=== PATIENT | male | born 1985 | race Asian ===

== ENCOUNTER 2016-06-11 20:42 | Emergency (ER) | payer OTHER ==
[2016-06-11 20:55] VITALS: BP 117/80
[2016-06-11] MEDS ORDERED: Cyclobenzaprine TAB* 10 MG PO ONE (21:14)
[2016-06-11] MEDS ORDERED: Indomethacin CAP* 25 MG CAP PO ONE (21:14)
--- NOTE | 2016-06-11 21:24 | UC ---
Neck Pain HPI - HPI Summary HPI Summary: First noticed slight twinge in L neck about 6 days ago while towelling off hair. Had mild soreness and stiffness since then but has been able to keep up with normal daily activities until today when he felt sudden pain while swimming. Denies any acute or remote trauma, no hx of surgery. Tonight has developed some tingling in L arm without weakness. Unable to turn head to the left due to pain. - History of Current Complaint Chief Complaint: UCUpperExtremity Stated Complaint: NECK STIFFNESS,PAIN Time Seen by Provider: 06/11/16 20:53 Hx Obtained From: Patient Onset/Duration Of Injury/Symptoms: Days Mechanism Of Injury: No Known Trauma Timing: Constant Onset/Duration: Sudden Onset, Lasting Days, Still Present Severity: Moderate Location: Discrete At: Character: Aching, Stiff, Spasmotic Aggravating Factors: Position, Movement Alleviating Factors: Position Associated Signs & Symptoms: Positive: Paresthesia. Negative: Weakness - Allergies/Home Medications Allergies/Adverse Reactions: Allergies Allergy/AdvReac Type Severity Reaction Status Date / Time No Known Allergies Allergy Verified 06/11/16 20:55 PMH/Surg Hx/FS Hx/Imm Hx Previously Healthy: Yes - Surgical History Surgical History: None - Family History Known Family History: Negative: Seizure Disorder - Social History Occupation: Employed Full-time - teaching/academics Lives: With Family Alcohol Use: Occasionally Substance Use Type: None Smoking Status (MU): Never Smoked Tobacco Review Of Systems Constitutional: Positive: Negative Skin: Positive: Negative Eyes: Positive: Negative ENT: Positive: Negative Respiratory: Positive: Negative Cardiovascular: Positive: Negative Gastrointestinal: Positive: Negative Genitourinary: Positive: Negative Musculoskeletal: Positive: Myalgia - L neck muscles Neurological: Positive: Paresthesia - L arm Psychological: Positive: Negative All Other Systems Reviewed And Are Negative: Yes Physical Exam Triage Information Reviewed: Yes Appearance: Well-Appearing, Well-Nourished, Pain Distress - with any head movement; head is in fixed position Vital Signs: Initial Vital Signs Temp 97.9 F 06/11/16 20:50 Pulse 60 06/11/16 20:50 Resp 16 06/11/16 20:50 BP 117/80 06/11/16 20:50 Pulse Ox 99 06/11/16 20:50 Vital Signs Reviewed: Yes Eye Exam: Normal Eyes: Positive: Conjunctiva Clear ENT Exam: Normal ENT: Positive: Normal ENT inspection, Hearing grossly normal, Pharynx normal, TMs normal Dental Exam: Normal Neck: Positive: No Lymphadenopathy, Nuchal Rigidity - loss of easy rotational motion, Tenderness @ - L side of C8 Respiratory Exam: Normal Respiratory: Positive: Chest non-tender, Lungs clear, Normal breath sounds, No respiratory distress, No accessory muscle use Cardiovascular Exam: Normal Cardiovascular: Positive: RRR, No Murmur Musculoskeletal: Positive: Strength Intact - BUE, distribution operations manager strength, ROM Limited @ - neck Neurological Exam: Other - spurling test negative Neurological: Positive: Alert Psychological Exam: Normal Skin Exam: Normal Neck Pain Course/Dx - Course Course Of Treatment: Discussed s/sx of cervical radiculopathy versus neruopraxia from cervical strain, explained that much of the time the conditions will both resolve spontaneously but follow-up is important. Pt understands, and will return or go to the hospital if he develops any weakness. - Differential Dx/Diagnosis Provider Diagnoses: cervical strain. cervical radiculopathy Discharge - Discharge Plan Condition: Stable Disposition: HOME Prescriptions: Cyclobenzaprine TAB* [Flexeril 10 MG TAB*] 10 mg PO BID PRN #20 tab PRN Reason: Pain Indomethacin CAP* [Indocin CAP*] 50 mg PO TID PRN #30 cap PRN Reason: Pain Patient Education Materials: Cervical Strain (ED) Referrals: [facility] [place] [facility] [place] [facility] [Outside] Additional Instructions: As we discussed, your symptoms are consistent with a muscle strain in your neck as well as pressure on a nerve at the level of your spine. Both of these conditions usually improve with time, rest, and physical therapy if needed. If you have worsening symptoms, trouble with your strength or coordination, or new parts of the body affected, you may need more testing and treatment. Please go to the hospital or return here if you have any severe symptoms or weakness. Please arrange to follow up with a primary care provider in 1-2 weeks.
== END 2016-06-11 21:22 | disposition home or self-care (01) ==
LOC: UCEAST 20:42
DX: S16.1XXA Strain of muscle, fascia and tendon at neck level, initial encounter (principal); M54.12 Radiculopathy, cervical region; X58.XXXA Exposure to other specified factors, initial encounter
CPT/HCPCS: 99202; A9270-GY; G0463